=== PATIENT | female | born 1995 | race African-American/Black ===

== ENCOUNTER 2023-04-08 19:45 | Emergency (ER) | payer MEDICAID, OTHER ==
[~2023-04-08] VITALS: Ht 167.6 cm; Wt 100.0 kg
[2023-04-08 20:31] VITALS: TEMP 98; O2SAT 100
[2023-04-08 23:03] VITALS: BP 126/75; PULSE 90; RESP 14
[2023-04-08] MEDS ORDERED: KETOROLAC 60MG/2ML VIAL IM STA (23:03)
[2023-04-08] MEDS ORDERED: NAPR-681 PO (23:21)
[2023-04-08] MEDS ORDERED: HYDR-4001 MT (23:21)
== END 2023-04-09 00:57 | disposition home or self-care (01) ==
LOC: ER 19:45
DX: S82.832A Other fracture of upper and lower end of left fibula, initial encounter for closed fracture (principal); F12.10 Cannabis abuse, uncomplicated; W18.39XA Other fall on same level, initial encounter; Y93.89 Activity, other specified; Y92.89 Other specified places as the place of occurrence of the external cause; Y99.8 Other external cause status
CPT/HCPCS: 73610; 96372; 99283; J1885; Z7610